=== PATIENT | male | born 1980 | race Asian ===

== ENCOUNTER 2020-01-11 09:42 | Inpatient (IN) | payer OTHER ==
[~2020-01-11] VITALS: Ht 175.3 cm; Wt 83.5 kg
--- NOTE | 2020-01-11 09:57 | Emergency Room Report ---
History of Present Illness General Chief Complaint: Overdose Source: Patient, EMS (Alejandro Easley ) Present Illness HPI Patient presents by paramedics for reports of possible overdose Asking the patient he reports that he did purchase and do methamphetamines earlier today He reports that he was doing it recreationally denies any homicidal or suicidal thoughts Upon arrival the patient is awake and alert Denies any chest pain or shortness of breath denies any vomiting patient appears mildly anxious Denies anything like this happening before (Alejandro Easley DO) Allergies: Coded Allergies: No Known Allergies (Unverified , 01/11/20) COVID-19 Screening Contact w/high risk pt: No Recent Travel to affected area: No Experienced COVID-19 symptoms?: No (Alejandro Easley DO) Patient History Past Medical History: see triage record Reviewed Nursing Documentation: PMH: Agreed; PSxH: Agreed (AdriaAlejandro carter DO) Nursing Documentation-PMH Past Medical History: No Stated History (Alejandro Easley DO) Review of Systems All Other Systems: negative except mentioned in HPI (AdriaAlejandro carter DO) Physical Exam Vital Signs Date Time Temp Pulse Resp B/P (MAP) Pulse Ox O2 Delivery O2 Flow Rate FiO2 01/11/20 09:38 97.5 100 18 162/102 (122) 98 Room Air Sp02 EP Interpretation: reviewed, normal General Appearance: well appearing, no apparent distress Head: normocephalic, atraumatic Eyes: bilateral eye PERRL, bilateral eye EOMI ENT: hearing grossly normal, normal pharynx, TMs + canals normal, uvula midline Neck: full range of motion, supple, no meningismus, no bony tend Respiratory: lungs clear, normal breath sounds, no rhonchi, no respiratory distress, no retraction, no accessory muscle use Cardiovascular #1: normal peripheral pulses, regular rate, rhythm, no edema, no gallop, no JVD, no murmur Gastrointestinal: normal bowel sounds, non tender, soft, no mass, no organomegaly, non-distended, no guarding, no hernia, no pulsatile mass, no rebound Genitourinary: no CVA tenderness Musculoskeletal: normal inspection Neurologic: motor strength/tone normal, athlete manager III-XII nml as tested, oriented x3 , sensory intact, responsive Psychiatric: mood/affect normal Skin: no rash, other - Patient does have ankle brace on the left Lymphatic: normal inspection, no adenopathy (Alejandro Easley DO) Medical Decision Making Diagnostic Impression: Primary Impression: Drug abuse Additional Impressions: Palpitations Pneumonia ER Course Patient is a fairly complex patient with multiple differential to consideration including but not limited to cardiac cardiopulmonary and vascular emergencies Given the patient's presentation imaging study was also obtained It does show evidence of elevated left hemidiaphragm therefore CT imaging was obtained for further information and there is evidence of a left lower lobe infiltrate Given the patient's uncertain presentation and the finding patient's white blood cell count elevated given the current conditions covid-19 Testing is performed and patient admitted for further care At time of admission patient is awake alert GCS 15 and has full decision-making capacity Labs Test 01/11/20 10:25 01/11/20 13:00 01/12/20 05:35 Sodium Level 138 MMOL/L (136-145) 140 MMOL/L (136-145) Potassium Level 3.9 MMOL/L (3.5-5.1) 4.3 MMOL/L (3.5-5.1) Chloride Level 101 MMOL/L (98-107) 105 MMOL/L (98-107) Carbon Dioxide Level 23 MMOL/L (21-32) 22 MMOL/L (21-32) Blood Urea Nitrogen 19 mg/dL (7-18) 16 mg/dL (7-18) Creatinine 1.1 MG/DL (0.55-1.30) 0.9 MG/DL (0.55-1.30) Estimat Glomerular Filtration Rate > 60 mL/min (>60) > 60 mL/min (>60) Glucose Level 133 MG/DL (74-106) 114 MG/DL (74-106) Calcium Level 9.2 MG/DL (8.5-10.1) 8.7 MG/DL (8.5-10.1) White Blood Count 15.5 K/UL (4.8-10.8) 17.0 K/UL (4.8-10.8) Red Blood Count 3.39 M/UL (4.70-6.10) 5.37 M/UL (4.70-6.10) Hemoglobin 11.2 G/DL (14.2-18.0) 14.8 G/DL (14.2-18.0) Hematocrit 27.7 % (42.0-52.0) 43.9 % (42.0-52.0) Mean Corpuscular Volume 82 FL (80-99) 82 FL (80-99) Mean Corpuscular Hemoglobin 32.9 PG (27.0-31.0) 27.4 PG (27.0-31.0) Mean Corpuscular Hemoglobin Concent 40.3 G/DL (32.0-36.0) 33.6 G/DL (32.0-36.0) Red Cell Distribution Width 11.5 % (11.6-14.8) 11.0 % (11.6-14.8) Platelet Count 246 K/UL (150-450) 408 K/UL (150-450) Mean Platelet Volume 5.9 FL (6.5-10.1) 5.7 FL (6.5-10.1) Neutrophils (%) (Auto) % (45.0-75.0) 75.7 % (45.0-75.0) Lymphocytes (%) (Auto) % (20.0-45.0) 14.3 % (20.0-45.0) Monocytes (%) (Auto) % (1.0-10.0) 8.5 % (1.0-10.0) Eosinophils (%) (Auto) % (0.0-3.0) 0.4 % (0.0-3.0) Basophils (%) (Auto) % (0.0-2.0) 1.1 % (0.0-2.0) Differential Total Cells Counted 100 Neutrophils % (Manual) 78 % (45-75) Lymphocytes % (Manual) 12 % (20-45) Monocytes % (Manual) 8 % (1-10) Eosinophils % (Manual) 0 % (0-3) Basophils % (Manual) 1 % (0-2) Band Neutrophils 1 % (0-8) Platelet Estimate Adequate Platelet Morphology Normal Hypochromasia 1+ Anisocytosis 1+ Urine Color Yellow Urine Appearance Clear Urine pH 5 (4.5-8.0) Urine Specific Doyle 1.025 (1.005-1.035) Urine Protein 2+ (NEGATIVE) Urine Glucose (UA) Negative (NEGATIVE) Urine Ketones 3+ (NEGATIVE) Urine Blood 3+ (NEGATIVE) Urine Nitrite Negative (NEGATIVE) Urine Bilirubin Negative (NEGATIVE) Urine Urobilinogen Normal MG/DL (0.0-1.0) Urine Leukocyte Esterase 1+ (NEGATIVE) Urine RBC 0-2 /HPF (0 - 0) Urine WBC 2-4 /HPF (0 - 0) Urine Squamous Epithelial Cells Occasional /LPF Urine Bacteria Occasional /HPF (NONE) Anion Gap 13 mmol/L (5-15) Lactic Acid Level 1.70 mmol/L (0.4-2.0) Total Bilirubin 0.8 MG/DL (0.2-1.0) 0.9 MG/DL (0.2-1.0) Aspartate Amino Transf (AST/SGOT) 95 U/L (15-37) 150 U/L (15-37) Alanine Aminotransferase (ALT/SGPT) 69 U/L (12-78) 81 U/L (12-78) Alkaline Phosphatase 57 U/L (46-116) 65 U/L (46-116) Total Creatine Kinase 3109 U/L (26-308) Creatine Kinase MB 19.5 NG/ML (0.0-3.6) Creatine Kinase MB Relative Index 0.6 Troponin I 0.015 ng/mL (0.000-0.056) Pro-B-Type Natriuretic Peptide 144 pg/mL (0-125) Total Protein 7.6 G/DL (6.4-8.2) 7.8 G/DL (6.4-8.2) Albumin 3.9 G/DL (3.4-5.0) 4.1 G/DL (3.4-5.0) Globulin 3.7 g/dL Albumin/Globulin Ratio 1.1 (1.0-2.7) Lipase 127 U/L (73-393) Urine Opiates Screen Negative (NEGATIVE) Urine Barbiturates Screen Negative (NEGATIVE) Phencyclidine (PCP) Screen Negative (NEGATIVE) Urine Amphetamines Screen Positive (NEGATIVE) Urine Benzodiazepines Screen Negative (NEGATIVE) Urine Cocaine Screen Negative (NEGATIVE) Urine Marijuana (THC) Screen Positive (NEGATIVE) Prothrombin Time 10.8 SEC (9.30-11.50) Prothromb Time International Ratio 1.0 (0.9-1.1) Activated Partial Thromboplast Time 30 SEC (23-33) Phosphorus Level 3.6 MG/DL (2.5-4.9) Direct Bilirubin 0.2 MG/DL (0.0-0.3) (Alejandro Easley DO) ER Course Patient signed out to me pending admission. Patient presented for methamphetamine intoxication and altered mental status. His mental status improved in the ER however he was found to have left lower lobe pneumonia. He was given antibiotics and arrange for admission he also had coronavirus testing. When patient was being prepared for transfer upstairs he requested to leave the hospital. He did not wish to stay. He was not hypoxic. He was alert oriented x3 without signs of intoxication. I did explain the risk of leaving AGAINST MEDICAL ADVICE however he still wished to leave AGAINST MEDICAL ADVICE. He was given antibiotic prescription at time of leaving AMA. He was also told to quarantine for at least 14 days that he could not return to work and also isolate his close contacts. (Omid Jimenez M.D.) Rhythm Strip Diag. Results EP Interpretation: yes Rate: 77 Rhythm: NSR, no PVC's, no ectopy (Alejandro Easley DO) Chest X-Ray Diagnostic Results Chest X-Ray Diagnostic Results : Chest X-Ray Ordered: Yes # of Views/Limited/Complete: 1 View Indication: Chest Pain EP Interpretation: Yes Interpretation: no effusion, no pneumothorax, other - Elevated left hemidiaphragm Impression: Other - Elevated left hemidiaphragm Electronically Signed by: Alejandro Easley DO (Alejandro Easley DO) CT/MRI/US Diagnostic Results CT/MRI/US Diagnostic Results : Impression CT chestImpression: Dense consolidation involving most left lower lobe, with some associated volume loss. Minimal opacities in the posterior inferior left upper lobe. Findings are consistent with pneumonia (Alejandro Easley DO) Last Vital Signs Date Time Temp Pulse Resp B/P (MAP) Pulse Ox O2 Delivery O2 Flow Rate FiO2 01/11/20 09:38 97.5 100 18 162/102 (122) 98 Room Air Status: improved (Alejandro Easley DO) Disposition: AGAINST MEDICAL ADVICE Condition: Improved Scripts Azithromycin* (ZITHROMAX*) 250 Mg Tablet 250 MG ORAL 2 tabs day 1, 1 qday, #6 TAB 0 Refills Take two tables once daily for 1 day, then one tablet once daily for 4 days. Prov: Omid Jimenez M.D. 01/11/20 Alejandro Easley DO Jan 11, 2020 09:57 Omid Jimenez M.D. Jan 11, 2020 16:43
[2020-01-11] MEDS ORDERED: LORazepam Inj 2mg/ml 1ml IV ONE (10:00)
[2020-01-11 10:30] VITALS: BP 151/123
--- NOTE | 2020-01-11 10:30 | NUR ---
59 Addendum: 01/11/20 at 1431 by [email or web address] ED Nurse Note: Pt brought in by RA 26 due to possible overdose of PCP. Pt was reported that he was walking naked outside of the house. Pt stated he bought tons of meth and sniff non-stop since yesterday. Pt was hypertensive, tachycardia, and RR 24. AO x 4 and no pain. IV inserted and all labs were drawn and sent to lab. NS bolus and Ativan given. CT with no contrast done. Per reilly, Address is [address] [place] [address]. Telephone number is [phone]. Patient stated he has a family and friends but not remembering nobody's telephone number.
[2020-01-11 11:08] LABS: BLOOD UREA NITROGEN 19 mg/dL (7-18); CALCIUM 9.2 MG/DL (8.5-10.1); CARBON DIOXIDE 23 MMOL/L (21-32); CHLORIDE 101 MMOL/L (98-107); CREATININE 1.1 MG/DL (0.55-1.30); POTASSIUM 3.9 MMOL/L (3.5-5.1); SODIUM 138 MMOL/L (136-145)
--- NOTE | 2020-01-11 11:21 | Diagnostic Imaging Report ---
Indication: Chest pain Technique: One view of the chest Comparison: none Findings: Left perihilar/infrahilar opacity likely reflects prominent hilar vessels, but focal patchy infiltrate also possible. The remainder the lungs and pleural spaces are clear. The heart size is normal. Impression: Prominent left infrahilar/perihilar vessels versus focal parenchymal infiltrate or less likely mass. Correlate with clinical findings No acute process otherwise Findings discussed by phone with Dr. Easley in the emergency room at the time of interpretation
[2020-01-11 12:00] VITALS: BP 134/85
[2020-01-11] MEDS ORDERED: cefTRIAXone 1 GM in NS 55 ML IVPB ONE (12:15)
[2020-01-11] MEDS ORDERED: Azithromycin 500 MG in NS 275 ML IV ONE (12:15)
--- NOTE | 2020-01-11 12:19 | Diagnostic Imaging Report ---
Clinical Indication: Chest pain, abnormal radiograph Technique: Spiral acquisitions obtained through the chest. No IV contrast utilized, reason not stated. Multiplanar reconstructions generated. Total dose length product 238 mGycm. CTDIvol(s) 6 mGy. Dose reduction achieved using automated exposure control Comparison: Chest radiograph immediately prior Findings:There is some image degradation due to respiratory motion artifact. There is dense consolidation involving most of the left lower lobe. There is also some left lower lobe volume loss. This is much more extensive than is suggested by the chest radiograph. A few patchy/nodular opacities are also seen in the posterior inferior left upper lobe. There is questionably some hazy opacity at the right lung base but this is probably mostly due to motion artifact. There is some dependent atelectasis at the right lung base. No effusions. No masses or nodules. The heart size is normal. No pericardial effusion. No mediastinal or hilar mass or adenopathy. Normal caliber pulmonary arteries. Normal-appearing thyroid. No axillary or chest wall mass or adenopathy. Included upper abdominal anatomy is unremarkable. The bones are unremarkable. Impression: Dense consolidation involving most left lower lobe, with some associated volume loss. Minimal opacities in the posterior inferior left upper lobe. Findings are consistent with pneumonia The CT scanner at [facility] is accredited by the [employer] and the scans are performed using protocols designed to limit radiation exposure to as low as reasonably achievable to attain images of sufficient resolution adequate for diagnostic evaluation.
--- NOTE | 2020-01-11 13:00 | NUR ---
ED Nurse Note: IV established; patent and kempt, blood and urine specimen collected, flu and covid19 swabs taken; sent to labs. Hydration and antibiotic on IV site, infusing well. will continue to monitor pt.
[2020-01-11 13:21] LABS: APPEARANCE,URINE CLEAR; BILIRUBIN, URINE NEGATIVE (NEGATIVE); GLUCOSE, URINE (UA) NEGATIVE (NEGATIVE); KETONES,URINE 3+ (NEGATIVE); LEUKOCYTE ESTERASE ,URINE 1+ (NEGATIVE); NITRITE,URINE NEGATIVE (NEGATIVE); PH,URINE 5 (4.5-8.0); PROTEIN,URINE 2+ (NEGATIVE); UROBILINOGEN,URINE NORMAL MG/DL (0.0-1.0)
[2020-01-11 13:27] LABS: HEMATOCRIT 27.7 % (42.0-52.0); HEMOGLOBIN 11.2 G/DL (14.2-18.0); MEAN CORPUSCULAR VOLUME 82 FL (80-99); PLATELET COUNT 246 K/UL (150-450); RED BLOOD COUNT 3.39 M/UL (4.70-6.10); RED CELL DISTRIBUTION WIDTH 11.5 % (11.6-14.8); WHITE BLOOD COUNT 15.5 K/UL (4.8-10.8)
[2020-01-11 13:36] LABS: COLOR,URINE YELLOW
[2020-01-11 13:50] LABS: ANION GAP 13 mmol/L (5-15); BLOOD UREA NITROGEN 16 mg/dL (7-18); CALCIUM 8.7 MG/DL (8.5-10.1); CARBON DIOXIDE 22 MMOL/L (21-32); CHLORIDE 105 MMOL/L (98-107); CREATININE 0.9 MG/DL (0.55-1.30); POTASSIUM 4.3 MMOL/L (3.5-5.1); SODIUM 140 MMOL/L (136-145)
[2020-01-11 14:00] VITALS: BP 147/106
--- NOTE | 2020-01-11 14:00 | NUR ---
ED Nurse Note: Pt was transferred from bed 4 to bed 7, received report from ERNESTINE Perez for continuity of care. Pt on bed, awake and alert on stable condition. VSS, on RA, IV intact and patent. Maintained on droplet isolation precaution. Safety assured. Kept door closed at all times.
[2020-01-11 14:04] LABS: ALANINE AMINOTRANSFERASE 69 U/L (12-78); ALBUMIN 3.9 G/DL (3.4-5.0); ALBUMIN/GLOBULIN RATIO 1.1 (1.0-2.7); ALKALINE PHOSPHATASE 57 U/L (46-116); ASPARTATE AMINO TRANSFERASE 95 U/L (15-37); BILIRUBIN,TOTAL 0.8 MG/DL (0.2-1.0); CKMB 19.5 NG/ML (0.0-3.6); CREATINE KINASE 3109 U/L (26-308)
[2020-01-11] MEDS ORDERED: Albuterol/Ipratropium 3ml neb HHN PRN (14:30)
[2020-01-11] MEDS ORDERED: Nitroglycerin Subl 0.4mg tab SL PRN (14:30)
[2020-01-11] MEDS: D5 1/2NS 1,000 ML IV SCH (15:13)
--- NOTE | 2020-01-11 15:15 | NUR ---
ED Nurse Note: IV fluids running on IV pump; pt tolerating well. VSS no ss of distress noted. no adverse reactions noted.
--- NOTE | 2020-01-11 15:59 | NUR ---
ED Nurse Note: Transfer to 211-2. Report given to ERNESTINE Perez. Per patient, no previous medical history.
[2020-01-11] MEDS ORDERED: ZITHROMAX250 MG ORAL (16:39)
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
--- NOTE | 2020-01-11 19:42 | NUR ---
HAND-OFF: Report given to ERNESTINE Rangel. Pt in stable condition. Endorsed plan of care.
[2020-01-11 20:00] VITALS: BP 135/64
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
[2020-01-11] MEDS: Heparin 5000 units/ml inj SUBQ SCH (21:00)
[2020-01-12] VITALS: BP 135/90
[2020-01-12 04:00] VITALS: BP 121/76
[2020-01-12] MEDS: D5 1/2NS 1,000 ML IV SCH (04:27)
[2020-01-12 06:59] LABS: BASOPHILS % (AUTO) 1.1 % (0.0-2.0); EOSINOPHILS % (AUTO) 0.4 % (0.0-3.0); HEMATOCRIT 43.9 % (42.0-52.0); HEMOGLOBIN 14.8 G/DL (14.2-18.0); LYMPHOCYTES % (AUTO) 14.3 % (20.0-45.0); MEAN CORPUSCULAR VOLUME 82 FL (80-99); MONOCYTES % (AUTO) 8.5 % (1.0-10.0); NEUTROPHILS % (AUTO) 75.7 % (45.0-75.0); PLATELET COUNT 408 K/UL (150-450); RED BLOOD COUNT 5.37 M/UL (4.70-6.10)
--- NOTE | 2020-01-12 07:25 | NUR ---
HAND-OFF: Report given to ERNESTINE Diane.
[2020-01-12 07:54] LABS: ALANINE AMINOTRANSFERASE 81 U/L (12-78); ALBUMIN 4.1 G/DL (3.4-5.0); ALKALINE PHOSPHATASE 65 U/L (46-116); ASPARTATE AMINO TRANSFERASE 150 U/L (15-37); BILIRUBIN,DIRECT 0.2 MG/DL (0.0-0.3); BILIRUBIN,TOTAL 0.9 MG/DL (0.2-1.0); PHOSPHORUS 3.6 MG/DL (2.5-4.9)
[2020-01-12] MEDS: Heparin 5000 units/ml inj SUBQ SCH (09:00)
--- NOTE | 2020-01-12 09:00 | NUR ---
NURSE NOTES: Pt left the unit AMA, in stable condition, ambulatory. Per pt, his friend is waiting for him outside the hospital. Risk and benefits of AMA explained, pt still insisted to leave. IV and tele monitor removed. Home isolation instructions given to the pt. Instructed the pt to self-isolate because he is being r/o for covid-19 and there is no result yet. Pt verbalized understanding. Addendum: 01/12/20 at 1115 by Ana Altamirano RN Mask given to the pt.
--- NOTE | 2020-01-12 09:04 | NUR ---
CASE MANAGEMENT:REVIEW 39 YR OLD MALE BIBA CC: POSSIBLE OVERDOSE. WALKING AROUND NAKED OUTSIDE SI: PNEUMONIA. 97.6 100 18 162/102 98% ON RA WBC+15.5 TCK+3109 CKMB+19.5 URINE(+) AMPHETAMINES AND THC IS: 1L NS BOLUS IV ATIVAN IV ROCEPHIN IV AZITHROMYCIN INFLUENZA A&B BLOOD CX CT CHEST CHEST X RAY COVID 19 : TO TELEMETRY PLAN: NPO SOCIAL SERVICE CONSULT DROPLET PRECAUTIONS
--- NOTE | 2020-01-12 09:20 | NUR ---
Patient verbalized understanding that he wants to leave the hospital against medical advice. Dr Pennington has been notified that the patient would like to leave against medical advice - no prescriptions ordered. RN Explained to patient that he is under investigation for COVID. RN Explained to patient the risks of leaving against medical advice including and worsening of condition. RN explained to patient the benefits of treatment and staying in the hospital under healthcare professional care. Patient was given a mask as instructed by carpenter supervisor Tiff. Patient was also discharged with Home Isolation Instructions for People with Coronavirus-2019 (COVID-19) Infection and people Awaiting COVID-19 test results FORM. Patient has signed form AMA and exited the building on his own.
--- NOTE | 2020-01-12 10:21 | NUR ---
*-* INSURANCE *-* ALL CLINICALS AND REVIEWS HAVE BEEN FAXED TO: [employer] P: [phone] F: [phone] (FAX ALL CLINICALS)
--- NOTE | 2020-01-12 11:16 | NUR ---
POST DC NOTE PT left AMA. SW was unable to meet and assess pt.
--- NOTE | 2020-01-14 13:53 | Discharge Summary ---
Discharge Summary Discharge Summary _ DATE OF ADMISSION: 01/11/2020 DATE OF DISCHARGE: 01/12/2020 ADMITTING MD: Dr. Lei Pennington CONSULTANTS: Dr. Judy Pacheco [facility] HOSPITAL COURSE: Patient is a 39-year-old male, who was brought in by paramedics for reports of possible overdose. Patient was reported to be walking naked outside the house. Patient admitted using methamphetamine. He denies any homicidal or suicidal thoughts. Upon arrival to ED, patient is awake and alert. He denied any chest pain, shortness of breath, or any vomiting. Blood pressure was elevated to 162/102. Blood work showed WBC of 15. Hemoglobin 11, hematocrit 28. Electrolytes were normal. Urine toxicology screen was positive for amphetamine and THC. Chest x- ray showed elevated left hemidiaphragm. CT of the chest was obtained and showed evidence of left lower lobe infiltrate. He was started empirically on IV antibiotics. He was swabbed for flu and covid. Patient was admitted to telemetry. He was placed on isolation. Social service consulted. Full treatment and work-up was not done. Patient left AMA. FINAL DIAGNOSES: Drug abuse Pneumonia rule out covid 19 DISPOSITION: Patient left AMA. I have been assigned to complete a discharge summary on this account, I was not involved with the patient's management.--TRUMAN Caraballo Jacqueline Robles NP Jan 14, 2020 13:53
--- NOTE | 2020-01-14 13:54 | History & Physical ---
History and Physical History & Physicial patient left AMA before being seen Mehnaz Barclay NP Jan 14, 2020 13:54
--- NOTE | 2020-01-15 16:41 | NUR ---
*-* INSURANCE *-* DISCHARGE SUMMARY HAS BEEN FAXED TO: [facility] P: [phone] F: [phone] (FAX ALL CLINICALS)
== END 2020-01-12 09:20 | disposition left against medical advice (07) | DRG 139 ==
LOC: EDBD 09:42 → EMR 09:57 → EDBEDREQ 12:10 → 2E 13:40 → EDBEDREQ 13:58
DX: J18.9 Pneumonia, unspecified organism (principal); F15.10 Other stimulant abuse, uncomplicated; R00.2 Palpitations
CPT/HCPCS: 36415; 71045; 71250; 80048; 80053; 80076; 80307; 81003; 82550; 82553; 83605; 83690; 83880; 84100; 84484; 85007; 85025; 85610; 85730; 86710; 87040; 87635; 93005; 96361; 96365; 96368; 96375; 99285; J7030